=== PATIENT | female | born 1995 | race Caucasian/White ===

== ENCOUNTER 2018-05-17 09:06 | Day surgery (SDC) | payer BC ==
[~2018-05-17 09:06] MED LIST: Aloe Vera/Sodium Chloride Gel 14.1 GM Tube ONE; EPINEPHrine 1 MG/ML SDV ONE; Lidocaine 1% 20 ML MDV ONE; Lidocaine 2% with EPINEPHrine 1:100,000 20 ML MDV ONE; Oxymetazoline 0.05% Nasal Spray 15 ML Bottle ONE; Propofol 200 MG/20 ML SDV ONE; Rocuronium 10 MG/ML 10 ML Syringe ONE; ceFAZolin 2 GM in Premix Bag 1 BAG IV ONE; fentaNYL 250 MCG/5 ML SDV ONE
--- NOTE | 2018-05-17 10:00 | PCM.PREANE ---
Preanesthetic Assessment - Anesthesia/Transfusion/Family Hx Anesthesia History: Prior Anesthesia Without Reaction Type of Anesthesia Reaction: Excessive Nausea/Vomiting (PONV but not excesive) Family History of Anesthesia Reaction: No Transfusion History: No Prior Transfusion(s) - Review of Systems General: No Symptoms Pulmonary: No Symptoms Cardiovascular: No Symptoms Gastrointestinal: No Symptoms Neurological: No Symptoms Other: Reports: None - Physical Assessment NPO Status Date: 05/16/18 Height: 1.63 m Weight: 64.41 kg ASA Class: 2 Mental Status: Alert & Oriented x3 Airway Class: Mallampati = 2 Dentition: Reports: Normal Dentition ROM/Head Extension: Full Lungs: Clear to Auscultation, Normal Respiratory Effort Cardiovascular: Regular Rate, Regular Rhythm - Allergies Allergies/Adverse Reactions: Allergies Allergy/AdvReac Type Severity Reaction Status Date / Time latex Allergy Hives Verified 05/11/18 15:23 - Blood Blood Available: No - Anesthesia Plan Pre-Op Medication Ordered: None - Acknowledgements Anesthesia Type Planned: General Anesthesia Pt an Appropriate Candidate for the Planned Anesthesia: Yes Alternatives and Risks of Anesthesia Discussed w Pt/Guardian: Yes Pt/Guardian Understands and Agrees with Anesthesia Plan: Yes PreAnesthesia Questionnaire HEENT History: Reports: Other (See Below) Other HEENT History: snoring, nasal obstruction Musculoskeletal History: Reports: Fracture Other Musculoskeletal History: hx fx wrist Neurological History: Reports: Concussion Psychiatric History: Reports: Anxiety, Depression - Past Surgical History Head Surgeries/Procedures: Reports: None HEENT Surgical History: Reports: LASIK - SUBSTANCE USE Smoking Status *Q: Never Smoker Recreational Drug Use History: No - HOME MEDS Home Medications: Home Meds LORazepam 0.5 mg PO ASDIRECTED PRN 05/11/18 [History] hydrOXYzine HCl [hydrOXYzine] 25 mg PO DAILY PRN 05/11/18 [History] - CURRENT (IN HOUSE) MEDS Current Meds: Current Medications Discontinued Medications Epinephrine HCl (Adrenalin) Confirm Administered Dose 1 mg .ROUTE .STK-MED ONE Stop: 05/17/18 07:33 Fentanyl (Sublimaze) Confirm Administered Dose 250 mcg .ROUTE .STK-MED ONE Stop: 05/17/18 07:49 Cefazolin Sodium/Dextrose 2 gm (/ Premix) 50 mls @ 100 mls/hr IV ONETIME ONE Stop: 05/17/18 00:30 Lidocaine HCl (Xylocaine-Mpf 1%) Confirm Administered Dose 5 mls @ as directed .ROUTE .ST-MED ONE Stop: 05/17/18 07:49 Lidocaine HCl (Xylocaine 1%) Confirm Administered Dose 20 ml .ROUTE .ST-MED ONE Stop: 05/17/18 07:34 Lidocaine/Epinephrine (Xylocaine 2% With Epinephrine 1:100,000) Confirm Administered Dose 20 ml .ROUTE .ST-MED ONE Stop: 05/17/18 07:34 Oxymetazoline HCl (Afrin Original 0.05% Nasal [place]) Confirm Administered Dose 15 ml .ROUTE .ST-MED ONE Stop: 05/17/18 07:34 Propofol (Diprivan 20 Ml) Confirm Administered Dose 200 mg .ROUTE .STK-MED ONE Stop: 05/17/18 07:49 Rocuronium Pel[place] (Zemuron) Confirm Administered Dose 100 mg .ROUTE .STK-MED ONE Stop: 05/17/18 07:49 Sodium Chloride ([place] Saline Nasal Gel) Confirm Administered Dose 14.1 gm .ROUTE .ST-MED ONE Stop: 05/17/18 07:34
--- NOTE | 2018-05-17 10:02 | PCM.HPR ---
H & P Addendum review - H & P Addendum Review Date of Original H & P: 05/04/18 Date Reviewed: 05/17/18 Time Reviewed: 09:45 Patient was Examined: No Changes
[2018-05-17] MEDS ORDERED: Midazolam 1 MG/ML 2 ML SDV ONE ×2 (10:06→13:01)
[2018-05-17] MEDS ORDERED: Oxymetazoline 0.05% Nasal Spray 15 ML Bottle ONE (10:06)
--- NOTE | 2018-05-17 10:37 | PCM.OPNOTE ---
- General Post-Op/Procedure Note Condition: Good Free Text/Narrative:: Preoperative Diagnosis: Nasal Obstruction, rhinitis, deviated nasal septum, hypertrophy of bilateral inferior turbinates, snoring, sleep disordered breathing, hypertrophy of tonsils Postoperative Diagnosis: Same Procedure: Bilateral tonsillectomy; reduction of bilateral inferior turbinate - coblation, nasal septoplasty Surgeon: Nona Ordoñez MD Anesthesia: GA Anesthesiologist: Camacho HOWELL Date of procedure:05/17/2018 Indications: Nasal Obstruction, deviated nasal septum, hypertrophy of bilateral inferior turbinates, snoring, sleep disordered breathing, hypertrophy of tonsils Findings: Bilateral endophytic grade 3 tonsils, bilateral inferior turbinate hypertrophy, bilateral nasal mucosa edematous and profuse mucoid secretions, predominantly right-sided nasal septal deviation; right sided deviated perpendicular plate of ethmoid and vomer spur; dislocation of the nasal septal cartilage off the floor posterior to nasal spine into the right nasal cavity; caudal dislocation of the septum to the right; high deviation of the septum on the left side. Operation Details: An informed consent was obtained. A time out was performed and the patient was brought back to the operating room. General anesthesia was administered with an endotracheal tube. Patient was appropriately positioned on the operating table. An appropriately sized Stephon Guillaume mouth gag was positioned and suspended from a Manning stand. The right tonsil was grasped with a Saw Brown tonsil holding forceps, upper pole dissected with bipolar forceps. Remaining dissection was with combination of cold steel and bipolar. Tonsil fossa was packed with an oxymetazoline 0.05% soaked 2 x 2 gauze. The left tonsil was then similarly dissected and fossa packed with an oxymetazoline 0.05% soaked 2 x 2 gauze. Hemostasis was achieved bilaterally with the bipolar cautery at a setting of 10 W. Bilateral fossae were irrigated with warm saline and hemostasis was ensured. Bilateral lower pillars were ligated at the inferior pole with 3.0 vicryl. Postnasal space was suctioned clear. This concluded the procedure. Mouth gag was removed the oral cavity was inspected. Lips gums and teeth were intact. Lubricating jelly was applied to the lips. The patient was then prepped and draped in a standard fashion for the nasal procedure. A 0 degree rigid nasal endoscope was used to examine bilateral nasal cavities and photo documentation was obtained. Bilateral inferior turbinates were infiltrated with 1% lidocaine - 2 mls were injected on each side. The left inferior turbinate was addressed first. A reflex PTR coblation wand with tip dipped in AYR Gel was used at setting of 6 :2 for Coblation and coagulation respectively. The point of entry was coagulated and wand was inserted till the second marking. Two becker were created in the single channel. The inferior turbinate was visibly shrunk. Similar procedure was repeated on the right side with visible reduction in size of turbinates. Bilateral nasal cavities were then packed with oxymetazoline 0.05% soaked cottonoid pledgets. After an appropriate period of decongestion the pledgets were removed. Nasal septum was infiltrated with 2% lidocaine 1: 100, 000 epinephrine in a standard fashion-a total of 5 mils was used. Bilateral nasal cavities were packed with oxymetazoline 0.05% soaked cottonoid pledgets. The pledgets were then removed. A right sided jose-transfixation incision was performed with a #15 blade. Right-sided mucoperichondrial flap was elevated with sharp dissection initially using a #2 mm osteotome and further continuing the dissection with a [place] elevator. Posteriorly mucoperiosteal flaps were elevated. Flap along the floor were also dissected off the maxillary crest and the septal spur along the floor. A left mucoperichondrial and mucoperiosteal flaps were similarly elevated. From the right side a posterior chondrotomy was performed. Perpendicular plate of ethmoid - inferior half was resected with Ramos scissor. This was grasped and removed with Анна forceps. Posterior lip of the septal cartilage was also removed. Vomer spur was removed with Анна forceps. Floor of septal cartilage was freed from the maxillary crest and inferior portion resected. Subsequent to this the nasal septum was positioned towards midline. There was a small tear along the floor on the right side in the flap. Left flap was intact. Using an iris scissor a columellar pocket was created. Caudal end of septum was securely sutured into this pocket using a 3-0 Vicryl suture. Flap incision was further sutured using 4 -0 plain gut on Librado needle and mattress sutures were applied. Bacitracin ointment was applied on bilateral turbinates. Bilateral Brennan splints coated in bacitracin were also inserted and secured anteriorly with 2-0 Prolene sutures. Drip pad was applied. Oropharynx was suctioned clear. This concluded the procedure and patient was turned over to the anesthesiologist for recovery. Specimens: Bilateral tonsils IV fluids: 1300 ml Blood loss : 20 ml Blood products: nil Disposition: PACU for recovery Follow up: In 1 week for removal of splints.
[2018-05-17] MEDS ORDERED: Ibuprofen 400 MG Tab PO PRN (10:38)
[2018-05-17] MEDS ORDERED: oxyCODONE 5 MG Tab PO PRN (10:38)
[2018-05-17] MEDS ORDERED: Dexamethasone 4 MG/ML 5 ML MDV ONE (10:48)
[2018-05-17] MEDS ORDERED: Ondansetron 4 MG/2 ML SDV ONE (10:48)
[2018-05-17] MEDS ORDERED: fentaNYL 100 MCG/2 ML SDV ONE (10:55)
[2018-05-17] MEDS ORDERED: Lactated Ringers 1,000 ML IV SCH (11:00)
[2018-05-17] MEDS ORDERED: Phenylephrine/Normal Saline 100 MCG/ML 10 ML Syringe ONE (11:25)
[2018-05-17] MEDS ORDERED: ePHEDrine 50 MG/ML SDV ONE (11:31)
[2018-05-17] MEDS ORDERED: Acetaminophen 1,000 MG in Premix Bag 1 BAG IV ONE (12:30)
[2018-05-17] MEDS: fentaNYL 100 MCG/2 ML SDV IVPUSH PRN ×2 (13:15→13:32)
--- NOTE | 2018-05-17 13:26 | PCM.POSTAN ---
POST ANESTHESIA ASSESSMENT - MENTAL STATUS Mental Status: Oriented, Somnolent (sleepy but awoke with high anxiety--2 mg versed IV in pacu to calm her down. Now resting comfortably.) - VITAL SIGNS Pulse Rate: 93 SaO2: 98 Resp Rate: 15 Blood Pressure: 113/68 Temperature: 36.3 C - RESPIRATORY Respiratory Status: Respiratory Rate WNL, Airway Patent, O2 Saturation Stable - CARDIOVASCULAR CV Status: Pulse Rate WNL, Blood Pressure Stable - GASTROINTESTINAL GI Status: No Symptoms - PAIN Pain Score: 4 (was a 6 before first dose of fentanyl in pacu) - POST OP HYDRATION Hydration Status: Adequate & Stable - OBSERVATIONS Free Text/Narrative:: good post op phase I recovery. Received versed and fentanyl in pacu for pain/ anxiety.
[2018-05-17] MEDS ORDERED: Midazolam 1 MG/ML 2 ML SDV IVPUSH SCH (13:30)
--- NOTE | 2018-05-17 14:51 | PCM48HPAN ---
Post Anesthesia Note - EVALUATION WITHIN 48HRS OF ANESTHETIC Vital Signs in Normal Range: Yes Patient Participated in Evaluation: Yes Respiratory Function Stable: Yes Airway Patent: Yes Cardiovascular Function Stable: Yes Hydration Status Stable: Yes Pain Control Satisfactory: Yes Nausea and Vomiting Control Satisfactory: Yes Pulse Rate: 93 SaO2: 98 Resp Rate: 22 Temperature: 36.3 C Blood Pressure: 113/68 - COMMENTS/OBSERVATIONS Free Text/Narrative:: awake, alert, vitals stable. Mom in room with her. Drinking. says pain 4/10 and tolerable. No nausea. Good post op phase II recovery.
== END 2018-05-17 16:30 | disposition home or self-care (01) ==
LOC: MW.SDS 09:06
PROVIDERS: ATTEND Otolaryngology
DX: J35.1 Hypertrophy of tonsils (principal); J34.2 Deviated nasal septum; J34.3 Hypertrophy of nasal turbinates; J30.9 Allergic rhinitis, unspecified; J34.89 Other specified disorders of nose and nasal sinuses; F41.9 Anxiety disorder, unspecified; J45.909 Unspecified asthma, uncomplicated; J31.0 Chronic rhinitis; G47.30 Sleep apnea, unspecified; Z91.040 Latex allergy status; Z79.899 Other long term (current) drug therapy
CPT/HCPCS: 30520; 30802; 42826; 81025; A9270; J0131; J1100; J2250; J2370; J2405; J2704; J3010; J7120; J0171

== ENCOUNTER 2019-05-28 18:29 | Emergency (ER) | payer BC, OTHER | END 2019-05-28 19:27 | disposition home or self-care (01) | LOC: MW.ED 18:29 | DX: Z53.21 Procedure and treatment not carried out due to patient leaving prior to being seen by health care provider (principal) ==

== ENCOUNTER 2019-05-29 05:58 | Emergency (ER) | payer BC, OTHER ==
[2019-05-29] MEDS ORDERED: Sodium Chloride 0.9% 2.5 ML Syringe FLUSH PRN (06:19)
[2019-05-29] MEDS ORDERED: Sodium Chloride 0.9% 1,000 ML IV ONE (06:19)
[2019-05-29] MEDS ORDERED: Ondansetron 4 MG/2 ML SDV IVPUSH ONE ×2 (06:19→07:01)
[2019-05-29] MEDS ORDERED: Ketorolac 30 MG/ML SDV IVPUSH ONE (06:19)
[2019-05-29] MEDS ORDERED: Sodium Chloride 0.9% 10 ML Syringe FLUSH PRN (06:19)
--- NOTE | 2019-05-29 06:26 | EDM.PDOC ---
ED HPI GENERAL MEDICAL PROBLEM - General Chief Complaint: Gastrointestinal Problem Stated Complaint: VOMITING, DIARRHEA Time Seen by Provider: 05/29/19 06:05 - History of Present Illness INITIAL COMMENTS - FREE TEXT/NARRATIVE: HISTORY AND PHYSICAL: History of present illness: Patient is a 24-year-old female who presents with complaints of vomiting that started approximately 4 PM yesterday with at least 7 episodes of vomitus which are not black or bloody and one episode of watery diarrhea along with diffuse vague mild abdominal pain. The patient says that she ate the same food as her significant other and she thought is food poisoning but she was not sure. She had no urinary complaints and she denies . The patient tells me that she had a miscarriage 4 weeks ago and has been following with Dr. Elam and her last serum quantitative hCG was 4 on May 11 per the patient's testimony and to the computer. She has no lower abdominal pain or right upper quadrant pain and no flank pain or urinary complaints. She is had no fever with the symptoms or upper respiratory symptoms. She says that she started having diffuse mid abdominal pain at about 4:00 PM and then proceeded to have multiple episodes of vomiting and then the one episode of diarrhea. She said she took an Zofran, that was at least 7 years old, and it did not work. She tried to take Pepto-Bismol but she vomited that up. She says she is very thirsty and wishes she can drink water but she knows that she will vomited up. The patient checked in earlier this evening but was feeling better in the waiting room and decided to go home and the symptoms returned. She is currently here for evaluation. The patient also says that she has a diffuse vague headache that started after the vomiting Review of systems: As per history of present illness and below otherwise all systems reviewed and negative. Past medical history: As per history of present illness and as reviewed below otherwise noncontributory. Surgical history: As per history of present illness and as reviewed below otherwise noncontributory. Social history: No reported history of drug or alcohol abuse. Family history: As per history of present illness and as reviewed below otherwise noncontributory. Physical exam: General: Well-developed well-nourished female who is nontoxic and vital signs are noted by me. She is not in any distress here in the ED and moves easily in the bed. HEENT: Atraumatic, normocephalic, pupils reactive, negative for conjunctival pallor or scleral icterus, mucous membranes tacky, throat clear, neck supple, nontender, trachea midline. Lungs: Clear to auscultation, breath sounds equal bilaterally, chest nontender. Heart: S1S2, regular him and tachycardic rate on my evaluation but no overt murmurs, negative for clicks, rubs, or JVD. Abdomen: Soft, nondistended, bowel sounds are normoactive and there is no tympany on percussion. There is some mild mid abdominal tenderness on deep palpation without rebound or guarding but it does not localize right or left, negative for masses or hepatosplenomegaly. Negative for costovertebral tenderness. Pelvis: Stable nontender. Genitourinary: Deferred. Rectal: Deferred. Extremities: Atraumatic, negative for cords or calf pain. Neurovascular unremarkable. Neuro: Awake, alert, oriented. Cranial nerves II through XII unremarkable. Cerebellum unremarkable. Motor and sensory unremarkable throughout. Exam nonfocal. Diagnostics: CBC CMP lipase UA with reflex Therapeutics: IV fluids Zofran Toradol 0655: The patient says her abdominal pain and vague headache pain has completely gone away but she still has some nausea without vomiting. I will give her a second dose of Zofran and have advised her that she may have the nausea but needs to start taking sips of fluids and I will give her more Zofran and the Bentyl for home. Impression: Nausea vomiting and diarrhea with mid abdominal pain Definitive disposition and diagnosis as appropriate pending reevaluation and review of above. Abdomen Pain Score (Numeric/FACES): 4 - Related Data Allergies Allergy/AdvReac Type Severity Reaction Status Date / Time coconut Allergy Hives Verified 05/29/19 06:12 latex Allergy Hives Verified 05/29/19 06:12 Home Meds: Home Meds Aspirin 81 mg PO DAILY 05/29/19 [History] Multivit with Calcium,Iron,Min [One Daily Women's] 1 each PO DAILY 05/29/19 [ History] Past Medical History - Past Health History Medical/Surgical History: Denies Medical/Surgical History HEENT History: Reports: Other (See Below) Other HEENT History: snoring, nasal obstruction Cardiovascular History: Reports: None Respiratory History: Reports: Asthma Gastrointestinal History: Reports: None Genitourinary History: Reports: None [employer] History: Reports: Spontaneous Musculoskeletal History: Reports: Fracture Other Musculoskeletal History: hx fx wrist Neurological History: Reports: Concussion Psychiatric History: Reports: Anxiety, Depression Endocrine/Metabolic History: Reports: None Hematologic History: Reports: None Immunologic History: Reports: None Oncologic (Cancer) History: Reports: None Dermatologic History: Reports: None - Infectious Disease History Infectious Disease History: Reports: None - Past Surgical History Head Surgeries/Procedures: Reports: None HEENT Surgical History: Reports: LASIK, Naso-Sinus Surgery, Tonsillectomy Social & Family History - Family History Family Medical History: Noncontributory - Tobacco Use Smoking Status *Q: Never Smoker - Recreational Drug Use Recreational Drug Use: No ED ROS GENERAL - Review of Systems Review Of Systems: Comprehensive ROS is negative, except as noted in HPI. ED EXAM, GENERAL - Physical Exam Exam: See Below (See dictation) Course - Vital Signs Last Recorded V/S: Last Vital Signs Temp 36.0 C 05/29/19 06:09 Pulse 123 H 05/29/19 06:09 Resp 18 05/29/19 06:09 BP 121/82 05/29/19 06:09 Pulse Ox 97 05/29/19 06:09 - Orders/Labs/Meds Orders: Active Orders 24 hr Category Date Time Status Sodium Chloride 0.9% [Normal Saline] 1,000 ml Med 05/29/19 06:19 Active IV STAT Sodium Chloride 0.9% [Saline Flush] Med 05/29/19 06:19 Active 10 ml FLUSH ASDIRECTED PRN Sodium Chloride 0.9% [Saline Flush] Med 05/29/19 06:19 Active 2.5 ml FLUSH ASDIRECTED PRN Saline Lock Insert [OM.PC] Stat Oth 05/29/19 06:18 Ordered Medication Orders Sodium Chloride (Normal Saline) 1,000 mls @ 999 mls/hr IV STAT ONE Stop: 05/29/19 07:19 Last Admin: 05/29/19 06:30 Dose: 999 mls/hr Sodium Chloride (Saline Flush) 10 ml FLUSH ASDIRECTED PRN PRN Reason: Keep Vein Open Last Admin: 05/29/19 06:37 Dose: 10 ml Sodium Chloride (Saline Flush) 2.5 ml FLUSH ASDIRECTED PRN PRN Reason: Keep Vein Open Last Admin: 05/29/19 06:37 Dose: 2.5 ml Labs: Laboratory Tests 05/29/19 05/29/19 05/29/19 Range/Units 06:16 06:34 06:34 WBC 6.58 (4.0-11.0) K/uL RBC 4.58 (4.30-5.90) M/uL Hgb 13.4 (12.0-16.0) g/dL Hct 38.6 (36.0-46.0) % MCV 84.3 (80.0-98.0) fL MCH 29.3 (27.0-32.0) pg MCHC 34.7 (31.0-37.0) g/dL RDW Std Deviation 39.8 (28.0-62.0) fl RDW Coeff of Julián 13 (11.0-15.0) % Plt Count 254 (150-400) K/uL MPV 9.40 (7.40-12.00) fL Neut % (Auto) 79.1 (48.0-80.0) % Lymph % (Auto) 7.8 L (16.0-40.0) % Whiteside % (Auto) 12.3 (0.0-15.0) % Eos % (Auto) 0.6 (0.0-7.0) % Baso % (Auto) 0.2 (0.0-1.5) % Neut # (Auto) 5.2 (1.4-5.7) K/uL Lymph # (Auto) 0.5 L (0.6-2.4) K/uL Whiteside # (Auto) 0.8 (0.0-0.8) K/uL Eos # (Auto) 0.0 (0.0-0.7) K/uL Baso # (Auto) 0.0 (0.0-0.1) K/uL Nucleated RBC % 0.0 /100WBC Nucleated RBCs # 0 K/uL Sodium 138 (136-145) mmol/L Potassium 3.4 L (3.5-5.1) mmol/L Chloride 103 (98-107) mmol/L Carbon Dioxide 23.8 (21.0-32.0) mmol/L BUN 20 H (7.0-18.0) mg/dL Creatinine 0.9 (0.6-1.0) mg/dL Est Cr Clr Drug Dosing 82.51 mL/min Estimated GFR (MDRD) > 60.0 ml/min Glucose 106 (74-106) mg/dL Calcium 8.5 (8.5-10.1) mg/dL Total Bilirubin 0.6 (0.2-1.0) mg/dL AST 28 (15-37) IU/L ALT 76 H (14-63) IU/L Alkaline Phosphatase 55 (46-116) U/L Total Protein 7.9 (6.4-8.2) g/dL Albumin 3.9 (3.4-5.0) g/dL Globulin 4.0 (2.6-4.0) g/dL Albumin/Globulin Ratio 1.0 (0.9-1.6) Lipase 136 (73-393) U/L Urine Color YELLOW Urine Appearance CLEAR Urine pH 6.0 (5.0-8.0) Ur Specific [place] >= 1.030 (1.001-1.035) Urine Protein NEGATIVE (NEGATIVE) mg/dL Urine Glucose (UA) NEGATIVE (NEGATIVE) mg/dL Urine Ketones NEGATIVE (NEGATIVE) mg/dL Urine Occult Blood MODERATE H (NEGATIVE) Urine Nitrite NEGATIVE (NEGATIVE) Urine Bilirubin NEGATIVE (NEGATIVE) Urine Urobilinogen 0.2 (<2.0) EU/dL Ur Leukocyte Esterase NEGATIVE (NEGATIVE) Urine RBC 1-3 (0-2/HPF) Urine WBC 0-2 (0-5/HPF) Ur Epithelial Cells FEW (NONE-FEW) Urine Bacteria 2+ H (NEGATIVE) Urine Mucus LIGHT (NONE-MOD) Meds: Medications Generic Name Dose Route Start Last Admin Trade Name Freq PRN Reason Stop Dose Admin Sodium Chloride 1,000 mls @ 999 mls/hr 05/29/19 06:19 05/29/19 06:30 Normal Saline IV 05/29/19 07:19 999 mls/hr STAT ONE Administration Sodium Chloride 10 ml 05/29/19 06:19 05/29/19 06:37 Saline Flush FLUSH 10 ml ASDIRECTED PRN Administration Keep Vein Open Sodium Chloride 2.5 ml 05/29/19 06:19 05/29/19 06:37 Saline Flush FLUSH 2.5 ml ASDIRECTED PRN Administration Keep Vein Open Discontinued Medications Generic Name Dose Route Start Last Admin Trade Name Freq PRN Reason Stop Dose Admin Ketorolac Tromethamine 30 mg 05/29/19 06:19 05/29/19 06:31 Toradol IVPUSH 05/29/19 06:20 30 mg ONETIME ONE Administration Ondansetron HCl 4 mg 05/29/19 06:19 05/29/19 06:30 Zofran IVPUSH 05/29/19 06:20 4 mg ONETIME ONE Administration Ondansetron HCl 4 mg 05/29/19 07:01 Zofran IVPUSH 05/29/19 07:02 ONETIME ONE Departure - Departure Time of Disposition: 07:15 Disposition: Home, Self-Care 01 Condition: Good Clinical Impression: Nausea vomiting and diarrhea, Abdominal pain - Discharge Information Referrals: [facility] [Primary Care Provider] - Forms: ED Department Discharge Additional Instructions: The following information is given to patients seen in the emergency department who are being discharged to home. This information is to outline your options for follow-up care. We provide all patients seen in our emergency department with a follow-up referral. The need for follow-up, as well as the timing and circumstances, are variable depending upon the specifics of your emergency department visit. If you don't have a primary care physician on staff, we will provide you with a referral. We always advise you to contact your personal physician following an emergency department visit to inform them of the circumstance of the visit and for follow-up with them and/or the need for any referrals to a consulting specialist. The emergency department will also refer you to a specialist when appropriate. This referral assures that you have the opportunity for followup care with a specialist. All of these measure are taken in an effort to provide you with optimal care, which includes your followup. Under all circumstances we always encourage you to contact your private physician who remains a resource for coordinating your care. When calling for followup care, please make the office aware that this follow-up is from your recent emergency room visit. If for any reason you are refused follow-up, please contact the [facility] emergency department at and ask to speak to the emergency department charge nurse. [facility] [address] [place] [address] Push sips of clear liquids such as Gatorade water and eat ice chips and popsicles as much as possible to keep up with your hydration. Introduce bites of bland food slowly throughout the day eating multiple small volumes. Use over -the-counter antidiarrheals as you choose and use prescribed medications, Zofran and Bentyl, for nausea vomiting and discomfort. Please connect with your provider in the clinic for reevaluation and further care and return to ER as needed and as discussed Sepsis Event Note - Evaluation Sepsis Screening Result: No Definite Risk - Focused Exam Vital Signs: Vital Signs Temp Pulse Resp BP Pulse Ox 05/29/19 06:09 36.0 C 123 H 18 121/82 97 Date Exam was Performed: 05/29/19 Time Exam was Performed: 07:05 - My Orders Last 24 Hours: My Active Orders 05/29/19 06:18 Saline Lock Insert [OM.PC] Stat 05/29/19 06:19 Sodium Chloride 0.9% [Normal Saline] 1,000 ml IV STAT Sodium Chloride 0.9% [Saline Flush] 10 ml FLUSH ASDIRECTED PRN Sodium Chloride 0.9% [Saline Flush] 2.5 ml FLUSH ASDIRECTED PRN - Assessment/Plan Last 24 Hours: My Active Orders 05/29/19 06:18 Saline Lock Insert [OM.PC] Stat 05/29/19 06:19 Sodium Chloride 0.9% [Normal Saline] 1,000 ml IV STAT Sodium Chloride 0.9% [Saline Flush] 10 ml FLUSH ASDIRECTED PRN Sodium Chloride 0.9% [Saline Flush] 2.5 ml FLUSH ASDIRECTED PRN
[2019-05-29 07:02] LABS: BLOOD UREA NITROGEN,BUN 20 mg/dL (7.0-18.0); CARBON DIOXIDE,CO2 23.8 mmol/L (21.0-32.0); CHLORIDE,CL 103 mmol/L (98-107); GLUCOSE RANDOM 106 mg/dL (74-106); LIPASE 136 U/L (73-393); POTASSIUM,K 3.4 mmol/L (3.5-5.1); SODIUM,NA 138 mmol/L (136-145)
== END 2019-05-29 07:31 | disposition home or self-care (01) ==
LOC: MW.ED 05:58
DX: R11.2 Nausea with vomiting, unspecified (principal); R19.7 Diarrhea, unspecified; R10.10 Upper abdominal pain, unspecified; Z91.018 Allergy to other foods; Z91.040 Latex allergy status; Z79.82 Long term (current) use of aspirin; Z98.890 Other specified postprocedural states
CPT/HCPCS: 36415; 80053; 81001; 83690; 85025; 96361; 96374; 96375; 96376; 99284; J1885; J2405; J7030; 99283

== ENCOUNTER 2020-01-27 06:05 | Emergency (ER) | payer BC, OTHER ==
--- NOTE | 2020-01-27 06:47 | EDM.PDOC ---
ED HPI GENERAL MEDICAL PROBLEM - General Chief Complaint: Lower Extremity Injury/Pain Stated Complaint: RT FOOT HURTS Time Seen by Provider: 01/27/20 06:24 right heel Pain Score (Numeric/FACES): 5 - Related Data Allergies Allergy/AdvReac Type Severity Reaction Status Date / Time coconut Allergy Hives Verified 01/27/20 06:16 latex Allergy Hives Verified 01/27/20 06:16 Home Meds: Home Meds Control Pills 1 tab PO DAILY 01/27/20 [History] Past Medical History - Past Health History Medical/Surgical History: Denies Medical/Surgical History HEENT History: Reports: Other (See Below) Other HEENT History: snoring, nasal obstruction Cardiovascular History: Reports: None Respiratory History: Reports: Asthma Gastrointestinal History: Reports: None Genitourinary History: Reports: None 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 Musculoskeletal History: Reports: Fracture Other Musculoskeletal History: hx fx wrist Neurological History: Reports: Concussion Psychiatric History: Reports: Anxiety, Depression Endocrine/Metabolic History: Reports: None Insulin Pump Model and Physician President: None Hematologic History: Reports: None Immunologic History: Reports: None Oncologic (Cancer) History: Reports: None Dermatologic History: Reports: None - Infectious Disease History Infectious Disease History: Reports: None - Past Surgical History Head Surgeries/Procedures: Reports: None HEENT Surgical History: Reports: LASIK, Naso-Sinus Surgery, Tonsillectomy Social & Family History - Family History Family Medical History: Noncontributory - Tobacco Use Smoking Status *Q: Never Smoker - Caffeine Use Caffeine Use: Reports: Coffee, Energy Drinks, Soda, Tea - Recreational Drug Use Recreational Drug Use: No Review of Systems - Review of Systems Review Of Systems: Comprehensive ROS is negative, except as noted in HPI. ED EXAM, GENERAL - Physical Exam Exam: See Below Free Text/Narrative:: My physical exam as in the HPI Course - Vital Signs Last Recorded V/S: Last Vital Signs Temp 97.8 F 01/27/20 06:15 Pulse 82 01/27/20 06:15 Resp 18 01/27/20 06:15 BP 124/86 01/27/20 06:15 Pulse Ox 97 01/27/20 06:15 - Orders/Labs/Meds Orders: Active Orders 24 hr Category Date Time Status Foot Comp Min 3V Rt [CR] Stat Exams 01/27/20 06:25 Ordered Departure - Departure Time of Disposition: 06:56 Disposition: Home, Self-Care 01 Condition: Good Clinical Impression: Right foot sprain - Discharge Information Instructions: Foot Sprain Referrals: PCP,None [Primary Care Provider] - Forms: ED Department Discharge Additional Instructions: Use an Wallace wrap for support and limit activities that cause pain. The following information is given to patients seen in the emergency department who are being discharged to home. This information is to outline your options for follow-up care. We provide all patients seen in our emergency department with a follow-up referral. The need for follow-up, as well as the timing and circumstances, are variable depending upon the specifics of your emergency department visit. If you don't have a primary care physician on staff, we will provide you with a referral. We always advise you to contact your personal physician following an emergency department visit to inform them of the circumstance of the visit and for follow-up with them and/or the need for any referrals to a consulting specialist. The emergency department will also refer you to a specialist when appropriate. This referral assures that you have the opportunity for follow-up care with a specialist. All of these measure are taken in an effort to provide you with optimal care, which includes your follow-up. Under all circumstances we always encourage you to contact your private physician who remains a resource for coordinating your care. When calling for follow-up care, please make the office aware that this follow-up is from your recent emergency room visit. If for any reason you are refused follow-up, please contact the [facility] Emergency Department at and asked to speak to the emergency department charge nurse. [facility] Professional Building [address] [place] [address], [address] [place] [address] Sepsis Event Note (ED) - Evaluation Sepsis Screening Result: No Definite Risk - Focused Exam Vital Signs: Vital Signs Temp Pulse Resp BP Pulse Ox 01/27/20 06:15 97.8 F 82 18 124/86 97 - My Orders Last 24 Hours: My Active Orders 01/27/20 06:25 Foot Comp Min 3V Rt [CR] Stat - Assessment/Plan Last 24 Hours: My Active Orders 01/27/20 06:25 Foot Comp Min 3V Rt [CR] Stat
--- NOTE | 2020-01-27 07:26 | CR ---
INDICATION: Injury. FINDINGS: Three views of the right foot show no evidence of acute fracture or dislocation. No other bony or soft tissue abnormalities identified. Dictated by Charles Lee MD @ 01/27/2020 7:23:49 AM Dictated by: Charles Lee MD @ 01/27/2020 07:23:59 (Electronically Signed)
== END 2020-01-27 07:10 | disposition home or self-care (01) ==
LOC: MW.ED 06:05
DX: S93.601A Unspecified sprain of right foot, initial encounter (principal); J45.909 Unspecified asthma, uncomplicated; Z91.018 Allergy to other foods; Z91.040 Latex allergy status; X58.XXXA Exposure to other specified factors, initial encounter
CPT/HCPCS: 73630-26-RT; 73630-RT; 99282; 99283-25

== ENCOUNTER 2021-04-19 17:31 | Emergency (ER) | payer BC ==
--- NOTE | 2021-04-19 17:49 | EDM.PDOC ---
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 Pt has soaked through 1 pad and had 1 additional "bell sized clot." Pt had some brief RLQ abd pain yesterday but otherwise no abd pain. Pt is compliant with her IVF medications. She is doing IVF through [facility]. She has seen Dr. Ramires for her other pregnancies. She has her first appointment for this scheduled for the day after tomorrow. Bleeding seems to be lightening. No exacerbating or alleviating factors, radiation or other associated sx. - Related Data Allergies Allergy/AdvReac Type Severity Reaction Status Date / Time coconut Allergy Hives Verified 04/19/21 17:44 latex Allergy Hives Verified 04/19/21 17:44 Home Meds: Home Meds Control Pills 1 tab PO DAILY 01/27/20 [History] Albuterol Sulfate 04/19/21 [History] Levonorgestrel/Ethin.estradiol [Levonor-Eth Estra 0.09-0.02 mg] 04/19/21 [History] Past Medical History - Past Health History Medical/Surgical History: Denies Medical/Surgical History HEENT History: Reports: Other (See Below) Other HEENT History: snoring, nasal obstruction Cardiovascular History: Reports: None Respiratory History: Reports: Asthma Gastrointestinal History: Reports: None Genitourinary History: Reports: None 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 Musculoskeletal History: Reports: Fracture Other Musculoskeletal History: hx fx wrist Neurological History: Reports: Concussion Psychiatric History: Reports: Anxiety, Depression Endocrine/Metabolic History: Reports: None Insulin Pump Model and Supervisor Records Change: None Hematologic History: Reports: None Immunologic History: Reports: None Oncologic (Cancer) History: Reports: None Dermatologic History: Reports: None - Infectious Disease History Infectious Disease History: Reports: None - Past Surgical History Head Surgeries/Procedures: Reports: None HEENT Surgical History: Reports: LASIK, Naso-Sinus Surgery, Tonsillectomy Social & Family History - Family History Family Medical History: No Pertinent Family History - Caffeine Use Caffeine Use: Reports: Coffee, Energy Drinks, Soda, Tea ED ROS GENERAL - Review of Systems Review Of Systems: See Below Free Text/Narrative/Comment: General: No fever. Eyes: No vision problems. ENT: No sore throat. Neck: No neck stiffness. Respiratory: No shortness of breath. Cardiac: No chest pain. Gastrointestinal: Per HPI : Per HPI Musculoskeletal: No myalgias/arthralgias. Neurologic: No headache. ED EXAM, GENERAL - Physical Exam Exam: See Below Free Text/Narrative:: General Appearance: No acute distress, appears comfortable HEENT: Normocephalic/atraumatic, sclera anicteric, mucous membranes moist Neck: Normal range of motion Chest and Lungs: Normal work of breathing Cardiovascular: Intact distal perfusion Neurologic: Awake, alert, no obvious deficits, moving all extremities Psychiatric: Appropriate, cooperative Departure - Departure Disposition: Home, Self-Care 01 Clinical Impression: Threatened - Discharge Information Instructions: Threatened Miscarriage, [id number] Forms: ED Department Discharge Additional Instructions: Dr. Elam is out this week. Dr. Pickett wants you to take it easy for two days and miss the AM shift 04/21. They will try to reach out to have someone check you in [facility] this week. [facility] [address] [place] [id number] The following information is given to patients seen in the emergency department who are being discharged to home. This information is to outline your options for follow-up care. We provide all patients seen in our emergency department with a follow-up referral. The need for follow-up, as well as the timing and circumstances, are variable depending upon the specifics of your emergency department visit. If you don't have a primary care physician on staff, we will provide you with a referral. We always advise you to contact your personal physician following an emergency department visit to inform them of the circumstance of the visit and for follow-up with them and/or the need for any referrals to a consulting specialist. The emergency department will also refer you to a specialist when appropriate. This referral assures that you have the opportunity for follow-up care with a specialist. All of these measure are taken in an effort to provide you with optimal care, which includes your follow-up. Under all circumstances we always encourage you to contact your private physician who remains a resource for coordinating your care. When calling for follow-up care, please make the office aware that this follow-up is from your recent emergency room visit. If for any reason you are refused follow-up, please contact the [facility] Emergency Department at and asked to speak to the emergency department charge nurse. - Assessment/Plan Assessment:: 26yoF presents with painless vaginal bleeding in early in the setting of IVF. CBC, Quant HCG and progesterone ordered as well as US. Pt has declined pelvic exam. Patient expresses understanding that this limits some of our diagnostic ability. However, patient does not appear to be actively hemorrhaging and is not in severe pain. Given this ED pelvic exam would not be likely to change person. Will discuss with OB when results return. <Abhishek Ritchie - Last Filed: 04/19/21 19:54> Course - Vital Signs Last Recorded V/S: Last Vital Signs Temp 36.3 C 04/19/21 17:45 Pulse 89 04/19/21 17:45 Resp 18 04/19/21 17:45 BP 152/106 H 04/19/21 17:45 Pulse Ox 99 04/19/21 17:45 - Orders/Labs/Meds Labs: Laboratory Tests 04/19/21 04/19/21 Range/Units 18:00 18:00 WBC 10.59 (4.0-11.0) K/uL RBC 4.58 (4.30-5.90) M/uL Hgb 13.3 (12.0-16.0) g/dL Hct 38.8 (36.0-46.0) % MCV 84.7 (80.0-98.0) fL MCH 29.0 (27.0-32.0) pg MCHC 34.3 (31.0-37.0) g/dL RDW Std Deviation 37.9 (28.0-62.0) fl RDW Coeff of Julián 12 (11.0-15.0) % Plt Count 304 (150-400) K/uL MPV 8.90 (7.40-12.00) fL Neut % (Auto) 50.1 (48.0-80.0) % Lymph % (Auto) 28.3 (16.0-40.0) % [place] % (Auto) 8.4 (0.0-15.0) % Eos % (Auto) 12.8 H (0.0-7.0) % Baso % (Auto) 0.4 (0.0-1.5) % Neut # (Auto) 5.3 (1.4-5.7) K/uL Lymph # (Auto) 3.0 H (0.6-2.4) K/uL [place] # (Auto) 0.9 H (0.0-0.8) K/uL Eos # (Auto) 1.4 H (0.0-0.7) K/uL Baso # (Auto) 0.0 (0.0-0.1) K/uL Nucleated RBC % 0.0 /100WBC Nucleated RBCs # 0 K/uL Progesterone 33.34 NG/ML HCG, Quant 26466.0 mIU/mL - Re-Assessments/Exams Free Text/Narrative Re-Assessment/Exam: 04/19/21 19:[address] Pickett information clerk for Dr. Elam. She recommends taking it easy two days, calling off AM shift 04/21 and follow-up this week coming at [facility] even though Dr. Elam and her nurse are off this holiday week. Departure - Departure Time of Disposition: 19:54 Condition: Good Sepsis Event Note (ED) - Focused Exam Vital Signs: Vital Signs Temp Pulse Resp BP Pulse Ox 04/19/21 17:45 36.3 C 89 18 152/106 H 99
--- NOTE | 2021-04-19 19:03 | US ---
INDICATION: First trimester bleeding. TECHNIQUE: Ultrasound OB pelvis transvaginal. Real-time oliveira-scale imaging of the pelvis was performed. COMPARISON: None. FINDINGS: There is a single intrauterine gestation. The embryo demonstrates a regular cardiac rate measuring 132 beats per minute. The embryo`s crown rump length measurement of 0.5 cm corresponds to a gestational age of 6 weeks 3 days with a sonographic due date of December 10, 2021. There is a normal appearing yolk sac. There are no gross abnormalities noted within the embryo at this early state of development. The placenta has not yet developed. There is a small perigestational hemorrhage. The ovaries are of normal size. There are no suspicious fluid collections noted in the cul-de-sac. IMPRESSION: Single viable intrauterine with an estimated ultrasound age of 6 weeks 3 days. Small subchorionic hemorrhage present. No other abnormality seen. Dictated by Jeremias Dumont MD @ 04/19/2021 7:02:36 PM (Electronically Signed)
== END 2021-04-19 20:05 | disposition home or self-care (01) ==
LOC: MW.ED 17:31
DX: O20.0 Threatened abortion (principal); O99.511 Diseases of the respiratory system complicating pregnancy, first trimester; J45.909 Unspecified asthma, uncomplicated; Z91.040 Latex allergy status; Z91.018 Allergy to other foods; Z3A.01 Less than 8 weeks gestation of pregnancy
CPT/HCPCS: 36415; 76801; 76801-26; 84144; 84702; 85025; 99284-25

== ENCOUNTER 2021-11-17 12:57 | Inpatient (IN) | payer BC ==
[2021-11-17] MEDS: Lactated Ringers 1,000 ML IV SCH (13:00)
[2021-11-17] MEDS ORDERED: Terbutaline 1 MG/ML SDV SUBCUT PRN (13:11)
[2021-11-17] MEDS ORDERED: Tranexamic Acid 1,000 MG in Sodium Chloride 0.9% 100 ML IV PRN (13:11)
[2021-11-17] MEDS ORDERED: Sodium Chloride 0.9% 2.5 ML Syringe FLUSH PRN (13:11)
[2021-11-17] MEDS ORDERED: Carboprost Tromethamine 250 MCG/1 ML Amp IM PRN (13:11)
[2021-11-17] MEDS ORDERED: Methylergonovine 0.2 MG/1 ML Amp IM PRN (13:11)
[2021-11-17] MEDS ORDERED: Sodium Chloride 0.9% 20 ML SDV IV PRN (13:11)
[2021-11-17] MEDS ORDERED: Ondansetron 4 MG/2 ML SDV IVPUSH PRN (13:11)
[2021-11-17] MEDS ORDERED: Sodium Chloride 0.9% 10 ML Syringe FLUSH PRN (13:11)
[2021-11-17] MEDS ORDERED: Butorphanol 1 MG/ML SDV IVPUSH PRN (13:11)
[2021-11-17] MEDS ORDERED: Water For Irrigation,Sterile 1,000 ML Container IRR PRN (13:11)
[2021-11-17] MEDS ORDERED: Misoprostol 200 MCG Tab PO PRN (13:11)
[2021-11-17] MEDS ORDERED: Lidocaine 1% 50 ML MDV INJECT PRN (13:11)
[2021-11-17] MEDS ORDERED: Oxytocin/0.9 % Sodium Chloride 30 UNIT/500 ML BAG IV SCH ×2 (13:15)
[2021-11-17] MEDS ORDERED: Misoprostol 25 MCG (1/4 of 100 MCG) Tab VAG PRN (13:30)
[2021-11-17] MEDS: Misoprostol 25 MCG (1/4 of 100 MCG) Tab VAG PRN ×2 (17:57→22:05)
[2021-11-17] MEDS ORDERED: ePHEDrine 50 MG/ML SDV IVPUSH PRN ×2 (18:25)
[2021-11-17] MEDS ORDERED: Ropivacaine HCl/PF 400 MG in Premix Bag 1 BAG EPIDUR SCH (18:30)
[2021-11-18] MEDS: Lactated Ringers 1,000 ML IV SCH ×3 (00:56→07:38)
[2021-11-18] MEDS ORDERED: Ibuprofen 400 MG Tab PO PRN (14:11)
[2021-11-18] MEDS ORDERED: Benzocaine/Menthol 20%-0.5% Spray 78 GM Cannister TOP PRN (14:11)
[2021-11-18] MEDS ORDERED: Lanolin 100% Cream 7 GM Tube TOP PRN (14:11)
[2021-11-18] MEDS ORDERED: oxyCODONE 5 MG Tab PO PRN (14:11)
[2021-11-18] MEDS ORDERED: Witch Hazel Medicated Pads 40/Jar TOP PRN (14:11)
[2021-11-18] MEDS ORDERED: Acetaminophen 500 MG Tab PO PRN ×2 (14:11)
[2021-11-18] MEDS ORDERED: Bisacodyl 10 MG Supp RECTAL PRN (14:11)
[2021-11-18] MEDS: Ibuprofen 800 MG Tab PO PRN ×2 (14:49→22:34)
[2021-11-19] MEDS: Ibuprofen 800 MG Tab PO PRN ×2 (08:12→16:39)
[2021-11-19] MEDS: Docusate Sodium 100 MG Cap PO PRN (08:13)
[2021-11-20] MEDS: Docusate Sodium 100 MG Cap PO PRN (08:48)
[2021-11-20] MEDS: Ibuprofen 800 MG Tab PO PRN ×2 (08:48→15:17)
== END 2021-11-20 20:59 | disposition home or self-care (01) | DRG 560 ==
LOC: MW.OB 12:57 → OBSVTOIN 11-18 13:13 → MW.OB 11-18 17:03
PROVIDERS: ADMIT Obstetrics & Gynecology; ATTEND Obstetrics & Gynecology
PROC: 10D07Z6 Extraction of Products of Conception, Vacuum, Via Natural or Artificial Opening (ICD-10-PCS; principal; 2021-11-18)
PROC: 3E033VJ Introduction of Other Hormone into Peripheral Vein, Percutaneous Approach (ICD-10-PCS; 2021-11-18)
PROC: 3E0P7VZ Introduction of Hormone into Female Reproductive, Via Natural or Artificial Opening (ICD-10-PCS; 2021-11-18)
PROC: 10907ZC Drainage of Amniotic Fluid, Therapeutic from Products of Conception, Via Natural or Artificial Opening (ICD-10-PCS; 2021-11-18)
PROC: 0KQM0ZZ Repair Perineum Muscle, Open Approach (ICD-10-PCS; 2021-11-18)
PROC: 3E0R3BZ Introduction of Anesthetic Agent into Spinal Canal, Percutaneous Approach (ICD-10-PCS; 2021-11-18)
PROC: 00HU33Z Insertion of Infusion Device into Spinal Canal, Percutaneous Approach (ICD-10-PCS; 2021-11-18)
PROC: 10D17Z9 Manual Extraction of Products of Conception, Retained, Via Natural or Artificial Opening (ICD-10-PCS; 2021-11-18)
DX: O43.123 Velamentous insertion of umbilical cord, third trimester (principal); O70.1 Second degree perineal laceration during delivery; Z37.0 Single live birth; Z3A.37 37 weeks gestation of pregnancy; Z91.040 Latex allergy status; Z91.018 Allergy to other foods; Z20.822 Contact with and (suspected) exposure to COVID-19
CPT/HCPCS: 01967; 36415; 51702; 59025; 59409; 82803; 85025; 85027; 86592; 86850; 86900; 86901; A9270-GY; J0595; J2001; J2405; J2590; J7120; U0002

== ENCOUNTER 2023-10-25 16:50 | Emergency (ER) | payer BC ==
[2023-10-25] MEDS: Sodium Chloride 0.9% 1,000 ML IV STA (17:41)
[2023-10-25] MEDS: Magnesium Sulfate/Water 2 GM in Premix Bag 1 BAG IV STA (17:49)
[2023-10-25] MEDS: Promethazine 25 MG/ML SDV IM STA (17:50)
[2023-10-25] MEDS: Ketorolac 30 MG/ML SDV IVPUSH STA (17:50)
[2023-10-25 17:51] LABS: BASOPHILS ABSOLUTE AUTO 0.03 K/uL (0.00-0.20); BASOPHILS PERCENT AUTO 0.4 % (0.0-1.0); EOSINOPHILS ABSOLUTE AUTO 0.16 K/uL (0.00-0.45); EOSINOPHILS PERCENT AUTO 2.2 % (0.0-6.0); HEMATOCRIT 34.9 % (37.0-47.0); HEMOGLOBIN 11.6 g/dL (12.0-16.0); IMMATURE GRAN ABSOLUTE AUTO 0.03 K/uL (0.00-0.05); IMMATURE GRAN PERCENT AUTO 0.4 % (0.0-0.4); LYMPHOCYTES ABSOLUTE AUTO 0.87 K/uL (1.00-4.80); LYMPHOCYTES PERCENT AUTO 11.8 % (24.0-44.0); MEAN CORPUSCULAR HEMOGLOBIN 26.4 pg (28.0-32.0); MEAN CORPUSCULAR HGB CONC 33.2 g/dL (32.0-36.0); MEAN CORPUSCULAR VOLUME 79.3 fL (83.0-99.0); MEAN PLATELET VOLUME 9.1 fL (9.4-12.3); MONOCYTES ABSOLUTE AUTO 1.02 K/uL (0.00-0.80); MONOCYTES PERCENT AUTO 13.9 % (0.0-8.0); NEUTROPHILS ABSOLUTE AUTO 5.25 K/uL (1.80-7.70); NEUTROPHILS PERCENT AUTO 71.3 % (41.0-71.0); PLATELET COUNT,PLT 212 K/uL (150-400); WHITE BLOOD CELL COUNT,WBC 7.36 K/uL (3.9-11.3)
[2023-10-25 18:28] LABS: ALBUMIN 3.8 g/dL (3.4-5.0); BILIRUBIN TOTAL 0.4 mg/dL (0.2-1.0); CALCIUM 8.6 mg/dL (8.5-10.1); CARBON DIOXIDE,CO2 22.4 mmol/L (21.0-32.0); CREATININE 0.9 mg/dL (0.6-1.0); EST CRCL DRUG DOSING (CG) 79.64 mL/min; POTASSIUM,K 3.6 mmol/L (3.5-5.1); PROTEIN TOTAL,TP 7.7 g/dL (6.4-8.2)
== END 2023-10-25 19:15 | disposition home or self-care (01) ==
LOC: MW.ED 16:50
DX: G43.909 Migraine, unspecified, not intractable, without status migrainosus (principal); Z91.040 Latex allergy status; Z91.018 Allergy to other foods; Z75.8 Other problems related to medical facilities and other health care
CPT/HCPCS: 36415; 80053; 83690; 84703; 85025; 96365; 96372; 96375; 99284; J1885; J2550; J3475; J7030